=== PATIENT | female | born 1990 | race Caucasian/White ===

== ENCOUNTER 2020-12-18 05:46 | Inpatient (IN) | payer OTHER, SELFPAY ==
[~2020-12-18] VITALS: Ht 157.5 cm; Wt 76.2 kg
[2020-12-18] MEDS ORDERED: CITRIC ACID/SODIUM CITRATE 30 ML UDC PO SCH (06:05)
[2020-12-18] MEDS ORDERED: METHYLERGONOVINE 0.2 MG/ML AMP IM PRN ×2 (06:05→07:25)
[2020-12-18] MEDS ORDERED: CLINDAMYCIN 900 MG in DEXTROSE 5% 100 ML IV SCH (06:05)
[2020-12-18 06:28] LABS: BASOPHILS % (AUTO) 0.4 % (0.0-2.0); EOSINOPHILS # (AUTO) 0.2 K/uL (0-0.4); EOSINOPHILS % (AUTO) 2.7 % (0.0-4.0); HEMATOCRIT 34.6 % (36-48); HEMOGLOBIN 11.8 g/dL (12.0-16.0); LYMPHOCYTES # (AUTO) 1.4 K/uL (2.5-16.5); MEAN CORPUSCULAR HEMOGLOBIN 31 pg (27-31); MEAN CORPUSCULAR HGB CONC 34 g/dL (33-37); MEAN CORPUSCULAR VOLUME 90.9 fL (80-94); MONOCYTES # (AUTO) 0.5 K/uL (0.8-1.0); MONOCYTES % (AUTO) 7.9 % (1.7-9.3); NEUTROPHILS # (AUTO) 4.8 K/uL (1.8-7.7); PLATELET COUNT (AUTO) 164 K/uL (140-450); RED BLOOD CELL COUNT(AUTO) 3.81 MIL/uL (4.20-5.40)
[2020-12-18] MEDS: LACTATED RINGERS 1,000 ML IV SCH ×2 (06:34→07:04)
[2020-12-18 06:36] VITALS: BP 120/69
[2020-12-18 06:36] LABS: APPEARANCE,URINE CLEAR (CLEAR); BILIRUBIN,URINE NEGATIVE (NEGATIVE); BLOOD, URINE NEGATIVE (NEGATIVE); COLOR,URINE YELLOW (YELLOW); LEUKOCYTE ESTERASE ,URINE 1+ (NEGATIVE); NITRITE, URINE NEGATIVE (NEGATIVE); UGLUCOSE NEGATIVE (NEGATIVE)
[2020-12-18 06:50] LABS: ALBUMIN 2.5 g/dL (3.4-5.0); ANION GAP 13.3 (8-16); CARBON DIOXIDE 23.2 mmol/L (21-32); CREATININE 0.6 mg/dL (0.6-1.3); POTASSIUM 3.5 mmol/L (3.5-5.1); TOTAL BILIRUBIN 0.2 mg/dL (0.0-1.0)
[2020-12-18] MEDS ORDERED: CLINDAMYCIN 900 MG/6 ML VIAL IV ONE (06:59)
[2020-12-18] MEDS ORDERED: PNV91TAB10 PO (07:13)
[2020-12-18] MEDS ORDERED: MIDAZOLAM 2 MG/2 ML VIAL ONE (07:18)
[2020-12-18] MEDS ORDERED: MORPHINE PRES FREE 10 MG/10 ML AMP IV ONE (07:19)
[2020-12-18] MEDS ORDERED: MEASLES, MUMPS, AND RUBELLA 1 VIAL SQVAC PRN (07:25)
[2020-12-18] MEDS ORDERED: OXYTOCIN 20 UNITS in LACTATED RINGERS 1,000 ML IV SCH (07:25)
[2020-12-18] MEDS ORDERED: oxyCODONE/APAP 5/325 MG 1 TAB TAB PO PRN (07:25)
[2020-12-18 07:35] LABS: RBC,URINE 0-5 /HPF (0-5); WBC,URINE 0-5 /HPF (0-5)
[2020-12-18] MEDS ORDERED: diphenhydrAMINE 50 MG/ML VIAL ONE (07:38)
[2020-12-18] MEDS ORDERED: MEPERIDINE 25 MG/ML SYR IVP PRN (08:00)
[2020-12-18] MEDS ORDERED: diphenhydrAMINE 50 MG/ML VIAL IVP PRN ×2 (08:00)
[2020-12-18] MEDS ORDERED: NALBUPHINE 10 MG/ML AMP IVP PRN (08:00)
[2020-12-18] MEDS ORDERED: NALOXONE 0.4 MG/ML VIAL IVP PRN ×3 (08:00)
[2020-12-18] MEDS ORDERED: ONDANSETRON 4 MG/2 ML VIAL IVP PRN ×2 (08:00)
[2020-12-18] MEDS ORDERED: HYDROmorphone 1 MG/ML AMP IVP PRN (08:00)
--- NOTE | 2020-12-18 08:21 | NUR ---
PATIENT HAS BEEN SCREENED AND CATEGORIZED LOW NUTRITION RISK. PATIENT WILL BE SEEN WITHIN 7 DAYS OF ADMISSION. 12/24/[address]
[2020-12-18] MEDS: OXYTOCIN 20 UNITS/LR PREMIX 1,000 ML IV ONE ×2 (08:54→09:00)
[2020-12-18] MEDS: KETOROLAC 30 MG/ML VIAL IM/IVP SCH ×3 (12:06→23:57)
[2020-12-18] MEDS: OXYTOCIN 20 UNITS in LACTATED RINGERS 1,000 ML IV SCH (17:02)
[2020-12-18] MEDS ORDERED: PROMETHAZINE 25 MG/ML VIAL IVP PRN (18:45)
[2020-12-19] MEDS ORDERED: OXYTOCIN 20 UNITS/LR PREMIX 1,000 ML IV ONE (01:05)
[2020-12-19] MEDS: OXYTOCIN 20 UNITS in LACTATED RINGERS 1,000 ML IV SCH (01:16)
[2020-12-19] MEDS ORDERED: oxyCODONE 5 MG TAB PO PRN (02:00)
[2020-12-19 06:09] LABS: BASOPHILS % (AUTO) 0.3 % (0.0-2.0); EOSINOPHILS # (AUTO) 0.1 K/uL (0-0.4); EOSINOPHILS % (AUTO) 1.1 % (0.0-4.0); HEMATOCRIT 31.2 % (36-48); HEMOGLOBIN 10.6 g/dL (12.0-16.0); LYMPHOCYTES # (AUTO) 1.1 K/uL (2.5-16.5); LYMPHOCYTES % (AUTO) 12.1 % (20.5-51.1); MEAN CORPUSCULAR HEMOGLOBIN 31 pg (27-31); MEAN CORPUSCULAR HGB CONC 34 g/dL (33-37); MEAN CORPUSCULAR VOLUME 91.6 fL (80-94); MONOCYTES # (AUTO) 0.6 K/uL (0.8-1.0); NEUTROPHILS % (AUTO) 79.5 % (42.2-75.2); PLATELET COUNT (AUTO) 142 K/uL (140-450); RED BLOOD CELL COUNT(AUTO) 3.41 MIL/uL (4.20-5.40); RED CELL DISTRIBUTION WIDTH 12.9 % (11.6-13.7); WHITE BLOOD COUNT (AUTO) 8.8 K/uL (4.8-10.8)
[2020-12-19] MEDS: oxyCODONE 5 MG TAB PO PRN ×3 (07:46→20:35)
[2020-12-19] MEDS: bisacodyL 10 MG SUPP RC SCH (09:00)
[2020-12-19] MEDS ORDERED: CAMERA MC ONE (19:06)
[2020-12-20] MEDS: oxyCODONE 5 MG TAB PO PRN ×3 (02:54→15:32)
[2020-12-20] MEDS: bisacodyL 10 MG SUPP RC SCH (09:41)
[2020-12-20] MEDS ORDERED: CAMERA MC ONE (19:37)
== END 2020-12-20 22:03 | disposition home or self-care (01) | DRG 540 ==
LOC: MLD 05:46 → MFCC 09:15
PROVIDERS: ADMIT Obstetrics & Gynecology; ATTEND Obstetrics & Gynecology
PROC: 10D00Z1 Extraction of Products of Conception, Low, Open Approach (ICD-10-PCS; principal; 2020-12-18 07:30)
PROC: 3E0134Z Introduction of Serum, Toxoid and Vaccine into Subcutaneous Tissue, Percutaneous Approach (ICD-10-PCS; 2020-12-19)
DX: O34.211 Maternal care for low transverse scar from previous cesarean delivery (principal); Z37.0 Single live birth; K59.00 Constipation, unspecified; O99.63 Diseases of the digestive system complicating the puerperium; Z23 Encounter for immunization; Z3A.39 39 weeks gestation of pregnancy; Z20.822 Contact with and (suspected) exposure to COVID-19
CPT/HCPCS: 36415; 51702; 80053; 81001; 85025; 86592; 86886; 86900; 86901; 87081; 87086; 90707; 96360; 96361; J1200; J1885; J2250; J2270; J2590; J3490; J7120